=== PATIENT | male | born 1950 | race Caucasian/White ===

== ENCOUNTER → 2018-08-06 | Outpatient (CLI) | payer OTHER ==
[2018-08-06 16:08] LABS: Blood Urea Nitrogen 14 mg/dL (9-20)
--- NOTE | 2018-08-06 17:00 | US ---
EXAMINATION TYPE: US carotid duplex BILAT DATE OF EXAM: 08/06/2018 COMPARISON: NONE CLINICAL HISTORY: Dizziness R42. Light headedness, dizziness EXAM MEASUREMENTS: RIGHT: Peak Systolic Velocity (PSV) cm/sec ----- Right CCA: 56.7 ----- Right ICA: 65.3 ----- Right ECA: 83.2 ICA/CCA ratio: 1.2 RIGHT: End Diastole cm/sec ----- Right CCA: 16.8 ----- Right ICA: 21.5 ----- Right ECA: 13.7 LEFT: Peak Systolic Velocity (PSV) cm/sec ----- Left CCA: 68.4 ----- Left ICA: 61.4 ----- Left ECA: 86.6 ICA/CCA ratio: 0.9 LEFT: End Diastole cm/sec ----- Left CCA: 21.2 ----- Left ICA: 28.0 ----- Left ECA: 12.4 VERTEBRALS (direction of flow): Right Vertebral: Antegrade Left Vertebral: Antegrade Rhythm: Normal Bilateral intimal thickening, minimal plaque bilateral bulb greater on left, no elevated velocities, no significant stenosis. Thyroid: 1.9 x 1.3 x 1.6cm nodule right lobe IMPRESSION: There is antegrade flow in the vertebral arteries. There is no significant stenosis seen in the carotid and vertebral arteries. Measurements and images suggest less than 20% stenosis in bot h internal carotid arteries. Criteria for Assigning % of Stenosis / Diameter reduction (Estimation based on the indirect measurements of the internal carotid artery velocities (ICA PSV). 1. Normal (no stenosis)=ICA PSV < 125 cm/s: ratio < 2.0: ICA EDV<40 cm/s. 2. Less than 50% stenosis=ICA PSV < 125 cm/s: ratio < 2.0: ICA EDV<40 cm/s. 3. 50 to 69% stenosis=ICA PSV of 125 to 230 cm/s: ration 2.0 ? 4.0: ICA EDV 40-100 cm/s. 4. Greater than 70% stenosis to near occlusion= ICA PSV > 230 cm/s: ratio > 4.0: ICA EDV > 100 cm/s. 5. Near occlusion= ICA PSV velocities may be low or undetectable: variable ratio and ICA EDV. 6. Total occlusion=unable to detect flow.
--- NOTE | 2018-08-07 06:50 | CT ---
EXAMINATION TYPE: CT brain wo/w con DATE OF EXAM: 08/06/2018 COMPARISON: None. HISTORY: Dizziness x [address] DLP: 2407 mGycm Automated exposure control for dose reduction was used. CONTRAST: CT scan of the head is performed without and with IV Contrast, patient injected with 100 mL of Isovue M300. FINDINGS: Noncontrast images show no acute intracranial hemorrhage or midline shift. There is ventricular and s ulcal prominence consistent with mild diffuse age-related cerebral atrophy. Postcontrast images show no suspicious enhancing mass. Dominant left vertebral artery is incidentally noted. The globes are in tact and the visualized sinuses are clear. No suspicious opacification of mastoid air cells is seen b ilaterally. IMPRESSION: There is mild to moderate diffuse cerebral atrophy. No suspicious enhancing mass is noted.
== END ==
LOC: RADCTMAIN 15:25
DX: G31.9 Degenerative disease of nervous system, unspecified (principal); R42 Dizziness and giddiness
CPT/HCPCS: 82565; 84520; 93880; 70470; 36415; Q9967